=== PATIENT | female | born 1945 | race Two or more races ===

== ENCOUNTER 2024-05-31 20:00 | Inpatient (IN) | payer OTHER, MEDICAID ==
[~2024-05-31] VITALS: Ht 152.4 cm; Wt 69.5 kg
--- NOTE | 2024-05-31 20:13 | ED.PDOC ---
HPI Comments HPI: Poor Historian. History obtained from the son and EMS. 78-year-old female presents to emergency department by EMS for evaluation of chest pain nonradiating that happened while she was in the car riding with her son. She has been having a long day and a stressful day according to the son. Pain is nonradiating. Pain is associated with shortness of breath. Pain lasts for approximately 15minutes. She denies active chest pain at this time but she appears to be short of breath. VITALS: Temp: 98.2F RR: 18 02 sat : 100 % on room air HR: 62 BP: 127/64 PMH: HTN, hypothyroidism, hyperlipidemia PSH: unknown Social history: denies tobacco use, denies ETOH use, denies drug use Medications: atorvastatin, Synthroid Allergies: nkda REVIEW OF SYSTEMS: CONSTITUTIONAL: Denies acute: fever, diaphoresis, chills, HEAD: Denies acute: headache, photophobia Eyes: Denies acute: Double vision, vision loss, eye pain, eye discharge. EARS: Denies acute: tinnitus, hearing loss, ear discharge, ear pain, THROAT: Denies acute: sore throat, swelling, difficulty swallowing , pain with swallowing, change in voice. NECK: Denies acute: neck pain, neck swelling, stiff neck. HEART: Denies acute : palpitations, LUNGS: Denies acute: wheezing, cough, hemoptysis ABDOMEN: Denies acute: abdominal pain, Nausea, Vomiting, diarrhea, melena , hematemesis, hematochezia SKIN: Denies acute: rash, redness, lesions, itchiness. EXTREMITIES: Denies acute: calf pain, numbness, tingling, weakness, denies pain in extremity. Denies acute: Low back pain. Neuro: Denies acute: focal neurological deficit, motor or sensory focal neurological deficit, tremors, seizure like activity, confusion, dizziness, change in mental status, loss of bowel or bladder function, cauda equina like symptoms. : Denies acute: dysuria, hematuria, flank pain, increase in urinary frequency. PSYCH: Denies acute: hallucination, suicidal ideation, homicidal ideation. FEMALE: Denies acute: abnormal vaginal bleeding, foul odor, unusual discharge. PHYSICAL EXAM: General: no acute distress, awake and alert. Head: normocephalic, atraumatic. Neck: supple, trachea is midline, no swelling. Throat: Normal phonation. Eyes:, no erythema, no purulent discharge, no proptosis, no icterus. Heart: regular rate, regular rhythm, no significant murmur appreciated. Lungs: Minimal respiratory distress, No wheezing, no rhonchi, no crackles. No stridors Clear to auscultation bilaterally. Abdomen: non tender to palpation, non distended, soft, no guarding, no rebound, + bowel sounds. Neuro: Awake, Alert, oriented to name, self, situation, follows commands GCS=15. Speech is normal. Skin: no petechia, no purpura, no cyanosis, non-pale, not jaundice. Lower extremities: --no - Pitting edema no deformity, no focal swelling, no calf TTP. Makes eye contact. moves all four extremities. Face: no apparent facial droop. Time Seen by MD: 20:03 Reviewed Notes: Nurses Notes, Bullet Slugs Inspector Notes, Medications, Allergies Allergies: Coded Allergies: NO KNOWN ALLERGIES (Unverified , 05/31/24) Information Source: Patient, Relative Mode of Arrival: EMS Past Medical History PAST MEDICAL HISTORY: HTN, Thyroid Surgical History: Denies all surgeries Family History Family History: Unknown Social History Smoker: Non-Smoker Alcohol: Denies ETOH Use Drugs: Denies Drug Use Lives In: Home Was a procedure done? Was a procedure done?: No X-Ray, Labs, Meds, VS Vital Signs Date Time Temp Pulse Resp B/P (MAP) Pulse Ox O2 Delivery O2 Flow Rate FiO2 05/31/24 21:13 63 05/31/24 20:42 98.5 62 18 127/64 (85) 100 98.5 05/31/24 20:42 18 100 Room Air* 0 21 05/31/24 20:13 63 05/31/24 20:00 98.5 62 18 127/64 (85) 100 Lab Test 05/31/24 21:07 05/31/24 20:25 Range/Units Troponin I High Sensitivity 4 5 </=54 ng/L White Blood Count 7.1 4.4-10.8 10^3/uL Red Blood Count 4.26 L 4.5-5.90 10^6/uL Hemoglobin 12.4 L 13.5-17.5 g/dL Hematocrit 37.1 L 41.0-53.0 % Mean Corpuscular Volume 87.2 80.0-100.0 fL Mean Corpuscular Hemoglobin 29.1 28.0-32.0 pg Mean Corpuscular Hemoglobin Concent 33.3 32.0-36.0 g/dL Red Cell Distribution Width 15.8 H 11.8-14.3 % Platelet Count 233 140-450 10^3/uL Mean Platelet Volume 8.8 6.9-10.8 fL Neutrophils (%) (Auto) 71.6 37.0-80.0 % Lymphocytes (%) (Auto) 22.0 10.0-50.0 % Monocytes (%) (Auto) 4.8 0.0-12.0 % Eosinophils (%) (Auto) 0.9 0.0-7.0 % Basophils (%) (Auto) 0.7 0.0-2.0 % Neutrophils # (Auto) 5.1 1.6-8.6 10 ^3/uL Lymphocytes # (Auto) 1.6 0.4-5.4 10 ^3/uL Monocytes # (Auto) 0.3 0-1.3 10 ^3/uL Eosinophils # (Auto) 0.1 0-0.8 10 ^3/uL Basophils # (Auto) 0.1 0-0.2 10 ^3/uL Nucleated Red Blood Cells 0.1 % D-Dimer, Quantitative 0.88 H 0.0-0.49 mg/L FEU Sodium Level 140 136-145 mmol/L Potassium Level 3.4 L 3.5-5.1 mmol/L Chloride Level 106 98-107 mmol/L Carbon Dioxide Level 25 20-31 mmol/L Anion Gap 9 5-15 Blood Urea Nitrogen 9 9-23 mg/dL Creatinine 1.00 0.700-1.30 mg/dL Glomerular Filtration Rate Calc 76 >90 mL/min BUN/Creatinine Ratio 9.0 L 10.0-20.0 Serum Glucose 122 H 74-106 mg/dL Calcium Level 10.3 8.7-10.4 mg/dL Magnesium Level 2.0 1.6-2.6 mg/dL Total Bilirubin 0.4 0.2-1.0 mg/dL Aspartate Amino Transferase (AST) 15 13-40 U/L Alanine Aminotransferase (ALT) 9 7-40 U/L Alkaline Phosphatase 90 46-116 U/L B-Type Natriuretic Peptide 77.29 0-100 pg/mL Total Protein 7.4 5.7-8.2 g/dL Albumin 4.2 3.2-4.8 g/dL Current Medications Medications (Trade) Dose Ordered Sig/[place] Route Start Time Stop Time Status Last Admin Aspirin 325 mg ONCE ONCE PO 05/31/24 20:15 05/31/24 20:40 DC 05/31/24 20:41 [place] [address] Ph: [phone] DIAGNOSTIC IMAGING Diagnostic Imaging Report : [id number] Signed PATIENT: JENNIFER GUILLEN ACCT: [id number] UNIT: [id number] : 1945 LOC: ER ROOM / BED: / AGE / SEX: 78 / M ADM STATUS: REG ER SERVICE 09 ORDERING PHYSICIAN: CLYDE HANNA DO PROCEDURE(s): CXRP - CHEST PORTABLE REASON: cp/sob ORDER NUMBER(s): [id number], ACCESSION NUMBER(s): [id number] CHEST RADIOGRAPH Indication: cp/sob Technique: Single frontal view of the chest was obtained Comparison: None FINDINGS: Lines and Tubes: None Lungs: Clear Pleura: No effusion. No pneumothorax. Cardiomediastinal contours: Unremarkable Bones: Unremarkable IMPRESSION: 1. Clear lungs. ATED BY: ALINE CESAR DO DICTATED DATE/TIME: 05/31/242044 SIGNED BY: ALINE CESAR DO SIGNED DATE/TIME: 05/31/242044 CC: Patient Education/Counseling: Diagnosis, Treatment Family Education/Counseling: No Family Present Additional Information Patient presented with the above HPI.--chest pain ---workup was initiated. patient was found with the above mentioned diagnosis. the following medications were ordered: aspirin 325x2 the following tests were ordered: EKG x 3, troponin x3, chest x-ray, UA, magn esium, D-dimer, CBC, CMP,BNP Patient ED course and VS have been stabilized. Patient has been reassessed in the ED and remained in a stable condition. Patient has been observed in the ED adequate length of time to insure improvement/stability. Escalation of care considered: Consideration of escalation to observation or admission. patient was admitted to the medicine team for further evaluation and treatment of their presentation. All the reports of any imaging studies that were ordered by myself were reviewed by myself. Departure 1 Departure Time of Disposition: 21:23 Impression: Primary Impression: Chest pain Additional Impression: Dyspnea Disposition: ADMITTED INPATIENT Admit to: Tele Condition: Guarded Discharged With: Self Critical Care Note Critical Care Time?: No Heart Score Heart Score: Heart Score Response (Comments) Value History Moderate Suspicious 1 EKG Normal 0 Age >65 2 Risk Factors 1 or 2 risk factors 1 Troponin Normal limit 0 Total 4 I personally scribed for CLYDE HANNA DO ([email or web address]) on 05/31/24 at 20:13. Electronically submitted by Deonna Boyer ([employer]). I personally scribed for CLYDE HANNA DO ([email or web address]) on 05/31/24 at 20:50. Electronically submitted by Deonna Boyer ([employer]). I personally scribed for CLYDE HANNA DO ([email or web address]) on 05/31/24 at 21:06. Electronically submitted by Deonna Boyer ([employer]). I personally scribed for CLYDE HANNA DO ([email or web address]) on 05/31/24 at 21:20. Electronically submitted by Deonna Boyer ([employer]). CLYDE HANNA DO May 31, 2024 20:13
[2024-05-31] MEDS: ASPirin 325 MG TAB ONE (20:40)
[2024-05-31] MEDS: ASPirin 325 MG TAB PO ONE (20:41)
[2024-05-31 20:42] VITALS: RESP 18; O2SAT 100
--- NOTE | 2024-05-31 20:47 | DVH ---
CHEST RADIOGRAPH Indication: cp/sob Technique: Single frontal view of the chest was obtained Comparison: None FINDINGS: Lines and Tubes: None Lungs: Clear Pleura: No effusion. No pneumothorax. Cardiomediastinal contours: Unremarkable Bones: Unremarkable IMPRESSION: 1. Clear lungs.
[2024-05-31 20:58] LABS: Basophils # (auto) 0.1 10 ^3/uL (0-0.2); Basophils % (auto) 0.7 % (0.0-2.0); Eosinophils # (auto) 0.1 10 ^3/uL (0-0.8); Eosinophils % (auto) 0.9 % (0.0-7.0); Hematocrit 37.1 % (41.0-53.0); Hemoglobin 12.4 g/dL (13.5-17.5); Lymphocytes # (auto) 1.6 10 ^3/uL (0.4-5.4); Mean Corpuscular Hemoglobin 29.1 pg (28.0-32.0); Mean Corpuscular Hgb Conc. 33.3 g/dL (32.0-36.0); Mean Corpuscular Volume 87.2 fL (80.0-100.0); Monocytes # (auto) 0.3 10 ^3/uL (0-1.3); Monocytes % (auto) 4.8 % (0.0-12.0); Neutrophils # (auto) 5.1 10 ^3/uL (1.6-8.6); Neutrophils % (auto) 71.6 % (37.0-80.0); Nucleated Red Blood Cells % 0.1 %; Platelet Count (auto) 233 10^3/uL (140-450); Red Blood Cells 4.26 10^6/uL (4.5-5.90); Red Cell Distribution Width 15.8 % (11.8-14.3); White Blood Cell 7.1 10^3/uL (4.4-10.8)
[2024-05-31 21:07] LABS: Alanine Aminotransferase 9 U/L (7-40); Albumin 4.2 g/dL (3.2-4.8); Alkaline Phosphatase 90 U/L (46-116); Anion Gap 9 (5-15); Aspartate Aminotransferase 15 U/L (13-40); Bilirubin, Total 0.4 mg/dL (0.2-1.0); Blood Urea Nitrogen 9 mg/dL (9-23); Calcium 10.3 mg/dL (8.7-10.4); Carbon Dioxide 25 mmol/L (20-31); Chloride 106 mmol/L (98-107); Glucose 122 mg/dL (74-106); Potassium 3.4 mmol/L (3.5-5.1); Sodium 140 mmol/L (136-145); Total Protein 7.4 g/dL (5.7-8.2)
[2024-06-01] VITALS (7 sets, daily range): BP systolic 128–162; BP diastolic 56–69; PULSE 52–74; RESP 16–18; TEMP 97.9–98.7; O2SAT 95–97
[2024-06-01] MEDS ORDERED: NITROGLYCERIN 0.4 MG SL TAB SL PRN (03:00)
[2024-06-01] MEDS ORDERED: MORPHINE SULFATE INJ 2 MG/ml SYRG IV PRN (03:00)
[2024-06-01] MEDS: POTASSIUM EFFERVESENT TAB 25 MEQ GT ONE (04:05)
--- NOTE | 2024-06-01 06:31 | ECG ---
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
--- NOTE | 2024-06-01 06:48 | ECG ---
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
[2024-06-01] MEDS ORDERED: ACET-2058 PO (06:54)
[2024-06-01] MEDS ORDERED: BACL20TA PO (06:54)
[2024-06-01] MEDS ORDERED: LEVO112T4 PO ×2 (06:54)
[2024-06-01] MEDS ORDERED: ASPI81TA28 PO (06:54)
[2024-06-01] MEDS ORDERED: DILT-29 PO (06:54)
[2024-06-01] MEDS ORDERED: OMEP-434 PO (06:54)
[2024-06-01] MEDS ORDERED: LOSA-533 PO (06:54)
[2024-06-01] MEDS ORDERED: IBUP-1454 PO (06:54)
[2024-06-01] MEDS ORDERED: OSEL75CA5 PO (06:57)
[2024-06-01] MEDS ORDERED: ARNI1LIQ XX (06:57)
[2024-06-01] MEDS ORDERED: BACLOFEN 10 MG TAB PO PRN (09:45)
--- NOTE | 2024-06-01 09:47 | DVHHPRES ---
History of Present Illness Resident Creating Document: STALIN MIR RESIDENT History of Present Illness Mr. Luis 78-year-old female with a history of hypertension, hypothyroidism, and hyperlipidemia presented to the ER with nonradiating chest pain and shortness of breath, which occurred while riding in a car with her son. The pain lasted about 15 minutes and was associated with a stressful day. She denied active chest pain upon arrival but appeared short of breath. Medications and tests, including aspirin, EKGs, troponin levels, chest X-ray, and others, were ordered. Her condition stabilized in the ER, and she was admitted for further evaluation and treatment In the telemetry unit. Patient is poor historian , collateral history taken from the EMS and son. Patient is poor historian and the medication reconciliation is partial, needs further confirmation from the family. Cardiovascular: CAD, HTN, hyperipidemia Endocrine: Hypothyroidism Past Surgical History: None Family History: None (Noncontributory) Smoke: No ALCOHOL: none Drugs: None Lives: with Family Review of Systems Constitutional: Yes: Malaise; No: Fever, Chills, Sweats, Weakness, Other Eyes: No: Pain, Vision change, Conjunctivae inflammation, Eyelid inflammation, Other, Redness ENT: No: Ear pain, Ear discharge, Nose pain, Nose discharge, Nose congestion, Mouth pain, Mouth swelling, Throat pain, Throat swelling, Other Respiratory: No: Cough, Dry, Shortness of breath, SOB with excertion, Wheezing, Hemoptysis, Pleuritic Pain, Sputum, Wheezing, Other Cardiovascular: Chest Pain; No: Palpitations, Orthopnea, Paroxysmal Noc. Dyspnea, Edema, Lt Headedness, Other Gastrointestinal: No: Nausea, Vomiting, Abdominal Pain, Diarrhea, Constipation, Melena, Hematochezia, Other Genitourinary: No Dysuria, No Frequency, No Incontinence, No Hematuria, No Retention, No Other Musculoskeletal: No: other, neck pain, shoulder pain, arm pain, back pain, hand pain, leg pain, foot pain Skin: No: Rash, Lesions, Jaundice, Bruising, Other Neurological: No: Weakness, Numbness, Incoordination, Change in speech, Confusion, Seizures, Other Allergies: Coded Allergies: NO KNOWN ALLERGIES (Unverified , 05/31/24) Medications Current Medications Medications Dose Ordered Sig/[place] Route Start Time Stop Time Status Last Admin Dose Admin Nitroglycerin 0.4 mg Q5MINP PRN SL 06/01/24 03:00 Morphine Sulfate 2 mg Q30M PRN IV 06/01/24 03:00 Exam Vital Signs Vital Signs Date Time Temp Pulse Resp B/P (MAP) Pulse Ox O2 Delivery O2 Flow Rate FiO2 06/01/24 08:31 98.7 55 16 137/60 (85) 97 98.7 06/01/24 04:08 Room Air 05/31/24 20:42 0 21 General Appearance: Alert, Oriented X3, Cooperative, mild distress HEENT: Atraumatic, PERRLA, EOMI, Mucous membr. moist/pink Respiratory: Clear to auscultation, Other (Basal rales) Cardiovascular: Regular rate, Normal S1, Normal S2, No murmurs Abdominal: Normal bowel sounds, Soft, No tenderness, No hepatospenomegaly Extremities: No clubbing, No cyanosis, No edema, Normal pulses, No tenderness/swelling Skin: No rashes, No breakdown, No significant lesion Neuro: Normal gait, Normal speech, Strength at 5/5 X4 ext, Normal tone, Sensation intact, Cranial nerves 3-12 NL, Reflexes 2+ Psych/Mental Status: Mental status NL, Mood NL Labs/Xrays Labs Test 05/31/24 22:55 05/31/24 20:25 Range/Units Troponin I High Sensitivity 4 </=54 ng/L White Blood Count 7.1 4.4-10.8 10^3/uL Red Blood Count 4.26 L 4.5-5.90 10^6/uL Hemoglobin 12.4 L 13.5-17.5 g/dL Hematocrit 37.1 L 41.0-53.0 % Mean Corpuscular Volume 87.2 80.0-100.0 fL Mean Corpuscular Hemoglobin 29.1 28.0-32.0 pg Mean Corpuscular Hemoglobin Concent 33.3 32.0-36.0 g/dL Red Cell Distribution Width 15.8 H 11.8-14.3 % Platelet Count 233 140-450 10^3/uL Mean Platelet Volume 8.8 6.9-10.8 fL Neutrophils (%) (Auto) 71.6 37.0-80.0 % Lymphocytes (%) (Auto) 22.0 10.0-50.0 % Monocytes (%) (Auto) 4.8 0.0-12.0 % Eosinophils (%) (Auto) 0.9 0.0-7.0 % Basophils (%) (Auto) 0.7 0.0-2.0 % Neutrophils # (Auto) 5.1 1.6-8.6 10 ^3/uL Lymphocytes # (Auto) 1.6 0.4-5.4 10 ^3/uL Monocytes # (Auto) 0.3 0-1.3 10 ^3/uL Eosinophils # (Auto) 0.1 0-0.8 10 ^3/uL Basophils # (Auto) 0.1 0-0.2 10 ^3/uL Nucleated Red Blood Cells 0.1 % D-Dimer, Quantitative 0.88 H 0.0-0.49 mg/L FEU Sodium Level 140 136-145 mmol/L Potassium Level 3.4 L 3.5-5.1 mmol/L Chloride Level 106 98-107 mmol/L Carbon Dioxide Level 25 20-31 mmol/L Anion Gap 9 5-15 Blood Urea Nitrogen 9 9-23 mg/dL Creatinine 1.00 0.700-1.30 mg/dL Glomerular Filtration Rate Calc 76 >90 mL/min BUN/Creatinine Ratio 9.0 L 10.0-20.0 Serum Glucose 122 H 74-106 mg/dL Calcium Level 10.3 8.7-10.4 mg/dL Magnesium Level 2.0 1.6-2.6 mg/dL Total Bilirubin 0.4 0.2-1.0 mg/dL Aspartate Amino Transferase (AST) 15 13-40 U/L Alanine Aminotransferase (ALT) 9 7-40 U/L Alkaline Phosphatase 90 46-116 U/L B-Type Natriuretic Peptide 77.29 0-100 pg/mL Total Protein 7.4 5.7-8.2 g/dL Albumin 4.2 3.2-4.8 g/dL [address] [address] Ph: [phone] DIAGNOSTIC IMAGING Diagnostic Imaging Report : [id number] Signed PATIENT: JENNIFER LUIS ACCT: [id number] UNIT: [id number] : 1945 LOC: ER ROOM / BED: / AGE / SEX: 78 / M ADM STATUS: REG ER SERVICE 09 ORDERING PHYSICIAN: CLYDE HANNA DO PROCEDURE(s): CXRP - CHEST PORTABLE REASON: cp/sob ORDER NUMBER(s): [id number], ACCESSION NUMBER(s): [id number] CHEST RADIOGRAPH Indication: cp/sob Technique: Single frontal view of the chest was obtained Comparison: None FINDINGS: Lines and Tubes: None Lungs: Clear Pleura: No effusion. No pneumothorax. Cardiomediastinal contours: Unremarkable Bones: Unremarkable IMPRESSION: 1. Clear lungs. ATED BY: ALINE CESAR DO DICTATED DATE/TIME: 05/31/242044 SIGNED BY: ALINE CESAR DO SIGNED DATE/TIME: 05/31/242044 CC: EKG Name: JENNIFER LUIS Acct: [id number] [place] [address] ELECTROCARDIOGRAM REPORT PATIENT: JENNIFER LUIS ACCT: [id number] : 1945 LOC: [facility] ROOM / BED: [address] [place] [address] AGE / SEX: 78 / M ADM STATUS: ADM IN SERVICE 09 UNIT: [id number] ORDERING PHYSICIAN: CLYDE HANNA DO PROCEDURE(s): EKG - ELECTROCARDIGRAM ORDER NUMBER(s): [id number], ACCESSION NUMBER(s): [id number] [facility] Test Date: 2024-05-31 Test Time: 21:13:26 Pat Name: JENNIFER LUIS Department: ED Room: [address] [place] [address] Gender: M 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 DICTATED BY: DICTATED DATE/TIME:05/31/242112 ELECTRONICALLY SIGNED BY: ELECTRONICALLY CO-SIGNED BY: Assessment/Plan Assessment/Plan Assessment: Mr. Luis, an 78-year-old female with a history of hypertension, hypothyroidism, and hyperlipidemia, presented to the ER with nonradiating chest pain and shortness of breath after a stressful day. The pain lasted about 15 minutes and occurred while riding in a car with her son. She denied active chest pain upon arrival but appeared short of breath. Medications and tests were ordered, and her condition stabilized in the ER. She was admitted to the telemetry unit for further evaluation and treatment. Collateral history was obtained from EMS and her son due to her being a poor historian. Plan: #1 Acute chest pain, to rule out ACS: So far workup negative with no acute ST-T changes, WNL BNP, and elevated troponin, further workup pending, echo pending, CXR unremarkable. Differentials include pruritic/bradycardic chest pain, ESR CRP pending, D-dimer unremarkable, continue the patient on Lovenox, COVID, RSV, influenza to check with close observation in telemetry unit. #2 Essential hypertension: At home patient takes diltiazem 120 mg XR, and losartan 25 mg daily.Moderately controlled with target blood pressure 140/90 or below as per AHA/ACC guidelines for non diabetic adults. At this point blood pressure well controlled no need of adding antihypertensives. Continue cardiac diet with 2 g of salt restriction. #3 Hypothyroidism: At home take levothyroxine 100 mcg daily. Check TSH, continue home levothyroxine. #4 Hyperlipidemia: At home takes atorvastatin 40 mg daily. Check HbA1c, lipid panel. Continue home medications. #5 Mild hypokalemia: 3.4, replenished, follow up BMP. #6 Normocytic hypochromic anemia: No known baseline hemoglobin of 3.4, check for FOBT, iron panel. Unknown last colonoscopy. #7 Generalized deconditioning: Likely age-related: Continue nutritious diet, PT evaluation for safe discharge to home. Consult sw if needed any social support / delivery to home. #8 Use of alternative medicine: Patient takes arnica, for pain management, in known homeopathic medication. Holding in-hospital. #9 Recent history of positive for flu: status post oseltamivir/ Tamiflu. possible pneumonia also got doxycycline previously. #10 Osteoarthritis: Patient takes as needed Tylenol, ibuprofen, baclofen 10 mg t.i.d. p.r.n.. #11 Known GERD: Takes omeprazole 20 mg daily, continue PPI in-hospital. #12 Known CAD: Extensive disease with continue aspirin atorvastatin. As needed sublingual nitroglycerin. This could be anginal chest pain given patient's age not a candidate for catheterization. Consider stress test inpatient/outpatient. PUD prophylaxis: Protonix 40mg daily. DVT prophylaxis: Levonox 40mg , brisk movement. Barriers to discharge: Medical diagnosis and management in progress. Patient lives with Son and family. PT and SW consult as needed. otherwise you CKD. Two. PCP: Trudy Washington. Specialist Relevant To Admission: Cardiology. Case discussed with Dr. Cornejo. Code Status: Full Code. Discussion of care needed total 29 minutes bedside. Plan discussed with: Patient, Other (Primary team. RN.) My Orders Orders - STALIN MIR RESIDENT Procedure Category Date Status Time Admit ADMIT 06/01/24 Transmitted 02:56 Nitroglycerin [facility] 06/01/24 In Process Sublingual (Ntrostat 03:00 Morphine Sulfate PHA 06/01/24 In Process Injection 03:00 Oxygen By Nasal RT 06/01/24 Transmitted Cannula 02:56 Stat Ekg For Chest [facility] 06/01/24 In Process Pain 02:56 Notify Of Changes [facility] 06/01/24 In Process From Base 02:56 Roofing Layer For [facility] 06/01/24 In Process 24 Hours 02:56 Emergency Dysrhythmia [facility] 06/01/24 In Process Protocol 02:56 Rhythm Strips Once [facility] 06/01/24 In Process Every Shift 02:56 Complete Blood Count LAB 06/01/24 Logged 09:12 Comprehensive LAB 06/01/24 Logged Metabolic Panel 09:12 Erythrocyte LAB 06/01/24 Logged Sedimentation Rate 09:12 C-Reactive Protein LAB 06/01/24 Logged 09:12 Thyroid Stimulating LAB 06/01/24 Logged Hormone 09:12 Prothrombin Time W/ LAB 06/01/24 Logged INR 09:12 Covid19 Antigen Wendy LAB 06/01/24 Logged Rapid Influenza A&B LAB 06/01/24 Logged 09:12 Respiratory Culture [place] 06/01/24 Logged W/ Gs 09:12 Respiratory Syncytial LAB 06/01/24 Logged Virus Ag 09:12 Pt Request For Service PT 12/14/24 Logged 09:20 Cardiac DIET 06/01/24 Transmitted Diet-2gna,Lofat,Lochol Breakfast * Cardiology Consult CONS 06/01/24 Verified 09:36 Date of Service: Jun 01, 2024 Billing Provider: CHARLEY CORNEJO MD Common Visit Codes: [id number] INP/OBS CARE (HIGH) Secondary Visit Codes: [id number] CARE PLAN 30 MINUTES STALIN MIR RESIDENT Jun 01, 2024 09:47 CHARLEY CORNEJO MD Jun 02, 2024 18:52
[2024-06-01 10:38] LABS: Basophils # (auto) 0 10 ^3/uL (0-0.2); Basophils % (auto) 0.4 % (0.0-2.0); Eosinophils # (auto) 0.1 10 ^3/uL (0-0.8); Eosinophils % (auto) 2.3 % (0.0-7.0); Hematocrit 37.4 % (41.0-53.0); Hemoglobin 12.2 g/dL (13.5-17.5); Lymphocytes # (auto) 2.7 10 ^3/uL (0.4-5.4); Lymphocytes % (auto) 46.1 % (10.0-50.0); Mean Corpuscular Hemoglobin 28.6 pg (28.0-32.0); Mean Corpuscular Hgb Conc. 32.6 g/dL (32.0-36.0); Mean Corpuscular Volume 87.7 fL (80.0-100.0); Monocytes # (auto) 0.4 10 ^3/uL (0-1.3); Monocytes % (auto) 6.2 % (0.0-12.0); Neutrophils # (auto) 2.6 10 ^3/uL (1.6-8.6); Platelet Count (auto) 235 10^3/uL (140-450); Red Blood Cells 4.27 10^6/uL (4.5-5.90); Red Cell Distribution Width 15.8 % (11.8-14.3); White Blood Cell 5.7 10^3/uL (4.4-10.8)
[2024-06-01 10:45] LABS: COVID19 ANTIGEN SOFIA FIA NEGATIVE (NEGATIVE); Rapid Influenza A Negative (Negative); Rapid Influenza B Negative (Negative)
[2024-06-01] MEDS: ASPirin 81 mg TAB PO SCH (10:46)
[2024-06-01] MEDS: PANTOPRAZOLE 40 MG TAB PO ONE (10:46)
[2024-06-01 10:54] LABS: % Iron Saturation 23.8 % (20-55)
[2024-06-01 10:56] LABS: Alanine Aminotransferase 10 U/L (7-40); Albumin 4.1 g/dL (3.2-4.8); Alkaline Phosphatase 87 U/L (46-116); Anion Gap 7 (5-15); Aspartate Aminotransferase 17 U/L (13-40); BUN/Creatinine Ratio 8.3 (10.0-20.0); Bilirubin, Total 0.6 mg/dL (0.2-1.0); CRP High Sensitivity 0.34 mg/dL (<1.0); Calcium 10.3 mg/dL (8.7-10.4); Carbon Dioxide 27 mmol/L (20-31); Chloride 107 mmol/L (98-107); Glucose 94 mg/dL (74-106); Potassium 4.4 mmol/L (3.5-5.1); Sodium 141 mmol/L (136-145); Total Protein 7.2 g/dL (5.7-8.2)
[2024-06-01 11:00] LABS: Blood Urea Nitrogen 7 mg/dL (9-23)
[2024-06-01 11:01] LABS: INR 1.03 (0.9-1.15); Prothrombin Time 10.9 sec (9.3-11.8)
[2024-06-01 11:27] LABS: Erythrocyte Sedimentation Rate 19 mm/hr (0-20)
[2024-06-01] MEDS: IOHEXOL 350 MG/ML 100ML IJ ONE (12:48)
--- NOTE | 2024-06-01 14:04 | DVHPNRES ---
Progress Note Date Seen: Jun 01, 2024 Resident Creating Document: TOVA LANG RESIDENT Medical Necessity Reason Pt with a Central, PICC or Fol: No Subjective Review of Systems Safia Luis is a 78-year-old female with a PMH of HTN, hypothyroidism, hyperlipidemia presented to the ED with the chief complaints of shortness of breath and chest pressure while traveling in a car with her son on the day of admission. Patient reported sudden onset of difficulty breathing and chest perforation which is nonradiating which subsided after sometime. Patient reported no previous symptoms like this, no recent infection or travel or sick contacts. On my assessment patient denies fever, nausea, vomiting, diarrhea, diaphoresis, and other acute associated symptoms PMH: CAD, HTN, HLD, hypothyroidism PSH: Denies Family history: Reviewed, noncontributory Social history: Lives with the family. Denies smoking, alcohol and other drug abuse Allergies: No known allergies Patient seen and examined at the bedside. Patient reported improvement in her symptoms since admission, reported no new complaints. Reviewed EKG and troponins x3 were negative. Due to elevated D-dimer, ordered CT angiogram to rule out PE , pending. Consulted cardiology for further evaluation. Objective vital signs Vital Sign Date Time Temp Pulse Resp B/P (MAP) Pulse Ox O2 Delivery O2 Flow Rate FiO2 06/01/24 12:45 52 16 134/64 (87) 95 06/01/24 08:31 98.7 98.7 06/01/24 04:08 Room Air 05/31/24 20:42 0 21 medications Current Medications Medications Dose Ordered Sig/[place] Route Start Time Stop Time Status Last Admin Dose Admin Nitroglycerin 0.4 mg Q5MINP PRN SL 06/01/24 03:00 Morphine Sulfate 2 mg Q30M PRN IV 06/01/24 03:00 Levothyroxine Sodium 100 mcg QAM@0600 PO 06/02/24 06:00 Atorvastatin Calcium 40 mg HS PO 06/01/24 22:00 Baclofen 10 mg Q8HP PRN PO 06/01/24 09:45 Aspirin 81 mg DAILY PO 06/01/24 10:00 06/01/24 10:46 81 MG Pantoprazole Sodium 40 mg DAILY@0600 PO 06/02/24 06:00 Examination Pt is lying on bed General Appearance: Alert, Oriented X3, Cooperative, Not in acute distress HEENT: Atraumatic, Mucous membranes moist/pink Respiratory: Clear to auscultation, Normal air movement, No added sounds Cardiovascular: Regular rate, Normal S1, Normal S2, No murmurs Abdominal: Active bowel sounds, Soft, no distention, no tenderness Extremities: No edema, Normal pulses, No tenderness/swelling Skin: No Significant rash, except past surgical scars Neuro: Normal speech, sensorimotor deficits none Psych/Mental Status: Mental status NL, Mood NL Nurse was there as sharperone during examination laboratory and microbiology Laboratory Tests 06/01/24 10:20 Test 06/01/24 10:20 Range/Units Serum Glucose 94 74-106 mg/dL Labs and/or images reviewed: Labs reviewed by me, Image(s) reviewed by me Problem List/Assessment/Plan Problem List/Assessment/Plan # acute chest pain rule out ACS # rule out PE - reviewed EKG, troponins x3 were negative - currently on chest pain protocol - elevated D-dimer, ordered CT angiogram to rule out PE , pending. - Consulted cardiology for further evaluation - supportive treatment # hypothyroidism - continue levothyroxine # uncontrolled hypertension - monitor - resumed home meds # Hypokalemia - Repleting - Monitor lab # Normocytic hypochromic anemia - monitor lab # Osteoarthritis - continue home meds # hyperlipidemia - continue home meds SCDs for now Protonix Cardiac diet Reconciled home meds Goals care discussed with the patient for more than 27 minutes: Full code status Case management discussed with Dr. Pizano, patient and nurse Plan discussed with: Patient My Orders My Orders Orders - TOVA LANG Procedure Category Date Status Time Ct Angio Chest CT 06/01/24 Taken Contrast 11:45 Echo 2d Mode Cardiac US 06/01/24 Logged DOP 11:45 * Cardiology Consult CONS 06/01/24 Transmitted 13:53 Complete Blood Count LAB 06/02/24 Verified 04:00 Basic Metabolic Panel LAB 06/02/24 Verified 04:00 Losartan Tablet PHA 06/02/24 Logged (Cozaar Tablet) 10:00 Date of Service: Jun 01, 2024 Billing Provider: MELLY PIZANO MD Common Visit Codes: [id number] INP/OBS CARE(HIGH) Secondary Visit Codes: [id number] CARE PLAN 30 MINUTES TOVA LANG Jun 01, 2024 14:04 MELLY PIZANO MD Jun 03, 2024 20:15
--- NOTE | 2024-06-01 14:35 | DVH ---
CTA Chest with intravenous contrast INDICATION: R/O PE COMPARISON: Chest x-ray 05/31/2024 TECHNIQUE: Multidetector spiral CTA of the chest was performed of the chest with intravenous contrast . PULMONARY ANGIOGRAPHY PROTOCOL was utilized using a bolus-tracking technique centered on the main p ulmonary artery. Axial, coronal and sagittal multiplanar and MIP reformats were performed. Radiation Dose : 1. Chest: CTDI volume is 13.02 mGy. Dose-length product is 325.57 mGy*cm The dose indicators for CT are the volume Computed Tomography (CT) Dose Index (CTDIvol) and the Dose Length Product (DLP), and are measured in units of mGy and mGy-cm, respectively. These indicators are not patient dose, but values generated from the CT scanner acquisition factors. The report includes radiation exposure data for exposures received during this examination. Findings: Pulmonary artery: No central or large segmental pulmonary emboli. There is suboptimal evaluation of the segmental/subse gmental pulmonary arterial branches at the lung bases secondary to respiratory motion. Lower neck: Normal thyroid. Lungs: There is dependent atelectasis. There are areas of mild ground-glass opacity which is likely related to poor inspiration. No focal consolidation. Heart/Vascular Structures: Normal heart size. No pericardial effusion. Mild atherosclerotic calcifica tion in the coronary arteries and thoracic aorta. Lymph Nodes: No adenopathy Pleura: No pleural effusion or significant pneumothorax. Musculoskeletal: No acute osseous abnormality. Old fracture of the right 4th lateral rib. Soft tissues: Normal. Upper abdomen: Punctate cholelithiasis. There is a 1.7 cm left adrenal nodule that attenuates at -7 H [place] units. There is a moderate size hiatal hernia. IMPRESSION: 1. No evidence of pulmonary embolism. 2. Mild ground-glass opacities are likely related to poor inspiration. No focal pneumonia. 3. Cholelithiasis. 4. Left adrenal adenoma. 5. Moderate hiatal hernia.
[2024-06-01] MEDS ORDERED: INFLUENZA TRIVALENT 2024-2025 0.5 ML INJ IM ONE (19:00)
[2024-06-01] MEDS ORDERED: cloNIDine HCL 0.1 MG TAB PO PRN (19:15)
[2024-06-01] MEDS ORDERED: ATOR40TA52 PO (19:30)
[2024-06-01] MEDS: ATORVASTATIN 20 MG TAB PO SCH (21:30)
[2024-06-02] VITALS (8 sets, daily range): BP systolic 107–135; BP diastolic 55–66; PULSE 67–80; RESP 16–20; TEMP 97.5–98.4; O2SAT 87–98
[2024-06-02] MEDS: PANTOPRAZOLE 40 MG TAB PO SCH (05:23)
[2024-06-02] MEDS: LEVOTHYROXINE SODIUM 100 MCG TAB PO SCH (05:24)
[2024-06-02 06:02] LABS: Basophils # (auto) 0 10 ^3/uL (0-0.2); Basophils % (auto) 0.7 % (0.0-2.0); Eosinophils # (auto) 0.2 10 ^3/uL (0-0.8); Hematocrit 36.8 % (36.0-46.0); Hemoglobin 12.3 g/dL (12.2-16.2); Lymphocytes # (auto) 2.1 10 ^3/uL (0.4-5.4); Lymphocytes % (auto) 40.4 % (10.0-50.0); Mean Corpuscular Hemoglobin 29.2 pg (28.0-32.0); Mean Corpuscular Hgb Conc. 33.5 g/dL (32.0-36.0); Mean Corpuscular Volume 87.2 fL (80.0-100.0); Monocytes # (auto) 0.4 10 ^3/uL (0-1.3); Monocytes % (auto) 7.8 % (0.0-12.0); Neutrophils # (auto) 2.5 10 ^3/uL (1.6-8.6); Neutrophils % (auto) 48.1 % (37.0-80.0); Nucleated Red Blood Cells % 0.1 %; Platelet Count (auto) 224 10^3/uL (140-450); Red Blood Cells 4.22 10^6/uL (4.0-5.20); Red Cell Distribution Width 15.6 % (11.8-14.3); White Blood Cell 5.1 10^3/uL (4.4-10.8)
[2024-06-02 06:03] LABS: Anion Gap 8 (5-15); Carbon Dioxide 26 mmol/L (20-31); Chloride 107 mmol/L (98-107); Potassium 4.4 mmol/L (3.5-5.1); Sodium 141 mmol/L (136-145)
[2024-06-02 06:06] LABS: Glucose 104 mg/dL (74-106)
[2024-06-02 06:09] LABS: BUN/Creatinine Ratio 13.8 (10.0-20.0); Blood Urea Nitrogen 13 mg/dL (9-23)
[2024-06-02] MEDS: LOSARTAN POTASSIUM 25 MG TAB PO SCH (10:28)
--- NOTE | 2024-06-02 11:00 | DVHINCON2 ---
Date of service: Jun 02, 2024 History of Present Illness Mr. Luis 78-year-old female with a history of hypertension, hypothyroidism, and hyperlipidemia presented to the ER with nonradiating chest pain and shortness of breath, which occurred while riding in a car with her son. The pain lasted about 15 minutes and was associated with a stressful day. She denied active chest pain upon arrival but appeared short of breath. Medications and tests, including aspirin, EKGs, troponin levels, chest X-ray, and others, were ordered. Her condition stabilized in the ER, and she was admitted for further evaluation and treatment In the telemetry unit. Patient is poor historian , collateral history taken from the EMS and son. Patient is poor historian and the medication reconciliation is partial, needs further confirmation from the family. Cardiovascular: CAD, HTN, hyperipidemia Endocrine: Hypothyroidism Past Surgical History: None Family History: None (Noncontributory) Smoke: No ALCOHOL: none Drugs: None Lives: with Family Past Medical History reviewed Family History: Patient reports no known family medical history. Allergies: Coded Allergies: NO KNOWN ALLERGIES (Unverified , 05/31/24) Home Meds Reported Medications Atorvastatin Calcium (ATORVASTATIN CALCIUM) 40 Mg Tab, 1 TAB PO DAILY 06/01/24 Diltiazem Hcl (DILTIAZEM HCL ER) 240 Mg Cap, 500 MG PO, CAP 06/01/24 Losartan Potassium (Losartan Potassium) 25 Mg Tab, 1 TAB PO DAILY, #90 TAB 1 Refill 06/01/24 Levothyroxine Sodium (Levothyroxine Sodium) 112 Mcg Tab, 100 MCG PO, TAB 06/01/24 Aspirin (Aspirin Ec) 81 Mg Tab, 81 MG PO DAILY, TAB 06/01/24 Omeprazole Magnesium (Omeprazole) 20 Mg Tab, 20 MG PO, TAB 06/01/24 Baclofen (Baclofen) 20 Mg Tab, 10 MG PO TID, TAB 06/01/24 Current Medications Current Medications Medications (Trade) Dose Ordered Sig/[place] Route PRN Reason Start Time Stop Time Status Last Admin Levothyroxine Sodium (Synthroid Tablet) 100 mcg QAM@0600 PO 06/02/24 06:00 06/02/24 05:24 Atorvastatin Calcium (Lipitor) 40 mg HS PO 06/01/24 22:00 06/01/24 21:30 Pantoprazole Sodium (Protonix Tablet) 40 mg DAILY@0700 PO 06/02/24 06:00 06/02/24 05:23 Losartan Potassium (Cozaar Tablet) 25 mg DAILY PO 06/02/24 10:00 06/02/24 10:28 Clonidine HCl (Catapres Tablet) 0.1 mg Q4HP PRN PO SBP>160 06/01/24 19:15 Review of Systems 10 pt ros otherwise negative Vital Signs Vital Signs Date Time Temp Pulse Resp B/P (MAP) Pulse Ox O2 Delivery O2 Flow Rate FiO2 06/02/24 10:28 129/65 06/02/24 09:00 97.7 78 17 97 97.7 06/02/24 08:00 Room Air* 0 21 Physical Exam nad s1 s2 rrr ctab softn t/nd no edema Labs/Diagnostic Data Labs Test 06/02/24 05:13 06/01/24 10:20 06/01/24 09:52 05/31/24 22:55 Range/Units White Blood Count 5.1 4.4-10.8 10^3/uL Red Blood Count 4.22 4.0-5.20 10^6/uL Hemoglobin 12.3 12.2-16.2 g/dL Hematocrit 36.8 36.0-46.0 % Mean Corpuscular Volume 87.2 80.0-100.0 fL Mean Corpuscular Hemoglobin 29.2 28.0-32.0 pg Mean Corpuscular Hemoglobin Concent 33.5 32.0-36.0 g/dL Red Cell Distribution Width 15.6 H 11.8-14.3 % Platelet Count 224 140-450 10^3/uL Mean Platelet Volume 9.0 6.9-10.8 fL Neutrophils (%) (Auto) 48.1 37.0-80.0 % Lymphocytes (%) (Auto) 40.4 10.0-50.0 % Monocytes (%) (Auto) 7.8 0.0-12.0 % Eosinophils (%) (Auto) 3.0 0.0-7.0 % Basophils (%) (Auto) 0.7 0.0-2.0 % Neutrophils # (Auto) 2.5 1.6-8.6 10 ^3/uL Lymphocytes # (Auto) 2.1 0.4-5.4 10 ^3/uL Monocytes # (Auto) 0.4 0-1.3 10 ^3/uL Eosinophils # (Auto) 0.2 0-0.8 10 ^3/uL Basophils # (Auto) 0 0-0.2 10 ^3/uL Nucleated Red Blood Cells 0.1 % Sodium Level 141 136-145 mmol/L Potassium Level 4.4 3.5-5.1 mmol/L Chloride Level 107 98-107 mmol/L Carbon Dioxide Level 26 20-31 mmol/L Anion Gap 8 5-15 Blood Urea Nitrogen 13 9-23 mg/dL Creatinine 0.94 0.550-1.02 mg/dL Glomerular Filtration Rate Calc 61 >90 mL/min BUN/Creatinine Ratio 13.8 10.0-20.0 Serum Glucose 104 74-106 mg/dL Calcium Level 10.0 8.7-10.4 mg/dL Erythrocyte Sedimentation Rate 19 0-20 mm/hr Prothrombin Time 10.9 9.3-11.8 sec Prothrombin Time INR 1.03 0.9-1.15 Iron Level 72 65-175 ug/dL Total Iron Binding Capacity 303 250-425 ug/dL Percent Iron Saturation 23.8 20-55 % Total Bilirubin 0.6 0.2-1.0 mg/dL Aspartate Amino Transferase (AST) 17 13-40 U/L Alanine Aminotransferase (ALT) 10 7-40 U/L Alkaline Phosphatase 87 46-116 U/L C-Reactive Protein High Sensitivity 0.34 <1.0 mg/dL Total Protein 7.2 5.7-8.2 g/dL Albumin 4.1 3.2-4.8 g/dL Thyroid Stimulating Hormone (TSH) 1.64 0.55-4.78 uIU/mL Influenza Type A Antigen Negative Negative Influenza Type B Antigen Negative Negative SARS-CoV-2 Antigen (Rapid) Negative NEGATIVE Troponin I High Sensitivity 4 </=54 ng/L Test 05/31/24 20:25 Range/Units D-Dimer, Quantitative 0.88 H 0.0-0.49 mg/L FEU Magnesium Level 2.0 1.6-2.6 mg/dL B-Type Natriuretic Peptide 77.29 0-100 pg/mL Assessment r/o acs htn hl hx of CAD DM recent flu Plan/Recommendation acs ruled out cta was - for PE ecg is SR and unremarkable consider outpt stress mpi check echo for lvef, r/o pericarditis Plan discussed with: Patient RUY ROSEN MD Jun 02, 2024 11:00
--- NOTE | 2024-06-02 18:58 | DVHPNRES ---
Progress Note Date Seen: Jun 02, 2024 Resident Creating Document: DAIJA WILSON RESIDENT Medical Necessity Reason Pt with a Central, PICC or Fol: No Subjective Review of Systems Safia Luis is a 78-year-old female patient who presents to the ED with the chief complaints of acute dyspnea and functional class III while traveling in a car with her son on the day of admission. Patient is a poor historian, but confirms to have never completed ischemia workup previously. Denies palpitation, syncope, chest pain, fever, nausea, vomiting, diarrhea, diaphoresis, sick contacts, bleeding and motor or sensory deficits. Past medical history: HTN treated with diltiazem (given by Dr. Holt, her PCP), DLP, hypothyroidism, chronic muscle spasms, hiatal hernia Surgical history: Denies Family history: Noncontributory Social history: Lives with the family. Denies current tobacco, alcohol and other drug abuse Allergies: No known allergies Home medication: Aspirin 81 mg p.o. daily, atorvastatin 40 mg p.o. daily, baclofen 20 mg p.o. t.i.d., diltiazem 500 mg p.o., levothyroxine 100 mcg p.o. daily, losartan 25 mg p.o. daily, omeprazole 20 mg p.o. daily Patient seen and examined at the bedside. Currently has no new complaints. EKG on admission showed junctional rhythm, discontinued Cardizem. Repeat EKG shows normal sinus rhythm. Patient did not have any chest pain, only dyspnea. Troponin x3 negative Objective vital signs Vital Sign Date Time Temp Pulse Resp B/P (MAP) Pulse Ox O2 Delivery O2 Flow Rate FiO2 06/02/24 16:56 97.7 69 16 110/64 (79) 98 97.7 06/02/24 08:00 Room Air* 0 21 Total Intake and Output 06/01/24 06/01/24 06/02/24 15:00 23:00 07:00 Intake Total 125 ml Balance 125 ml medications Current Medications Medications Dose Ordered Sig/[place] Route Start Time Stop Time Status Last Admin Dose Admin Nitroglycerin 0.4 mg Q5MINP PRN SL 06/01/24 03:00 Morphine Sulfate 2 mg Q30M PRN IV 06/01/24 03:00 Levothyroxine Sodium 100 mcg QAM@0600 PO 06/02/24 06:00 06/02/24 05:24 100 MCG Atorvastatin Calcium 40 mg HS PO 06/01/24 22:00 06/01/24 21:30 40 MG Baclofen 10 mg Q8HP PRN PO 06/01/24 09:45 Aspirin 81 mg DAILY PO 06/01/24 10:00 06/02/24 10:28 81 MG Pantoprazole Sodium 40 mg DAILY@0700 PO 06/02/24 06:00 06/02/24 05:23 40 MG Losartan Potassium 25 mg DAILY PO 06/02/24 10:00 06/02/24 10:28 25 MG Clonidine HCl 0.1 mg Q4HP PRN PO 06/01/24 19:15 Examination Patient lying in bed, in no acute distress General: Lucid, afebrile, mucosae are moist Cardiovascular: Normal S1 and S2. No murmurs, gallops or rubs Respiratory: Normal ventilation mechanics. Clear lung sounds on auscultation Abdomen: Soft, nontender, no organomegaly, normal bowel sounds MSK/skin: Mobilizes 4 limbs. Skin is dry and warm Neurological: Oriented in 3 spheres. No motor no sensitive deficits. 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 Awaiting report for echocardiogram to rule out pericarditis Junctional rhythm Evidence on 1st EKG on admission Have discontinued Cardizem. Patient has no clear indication for Cardizem Patient's symptoms may have been secondary to bradyarrhythmia Ruled out PE Elevated D-dimer Completed angio CT: No evidence of PE, mild ground-glass opacities likely secondary to poor inspiration, cholelithiasis, left adrenal adenoma, moderate hiatal hernia. Hypothyroidism Continue levothyroxine 100 mcg p.o. daily Hypertension Continue losartan 25 mg p.o. daily. Have discontinued diltiazem Hypokalemia Replenish Normocytic hypochromic anemia Monitor Dyslipidemia Continue with atorvastatin Goals of care discussed with patient for over 18 minutes: Full code status Case management discussed with Dr. Landa, patient and nurse: Awaiting results of echocardiogram. Patient is currently asymptomatic after discontinuing diltiazem, does EKG shows normal sinus rhythm. Suggest replacing diltiazem treatment with other classical antihypertensive medication. Plan discussed with: Patient, Son, Other (Nurses) Date of Service: Jun 02, 2024 Billing Provider: MELYL LANDA MD Common Visit Codes: [id number] INP/OBS CARE(HIGH) DAIJA WILSON RESIDENT Jun 02, 2024 18:58 MELLY LANDA MD Jun 03, 2024 20:15
[2024-06-03] VITALS (7 sets, daily range): BP systolic 113–118; BP diastolic 58–63; PULSE 67–90; RESP 17–18; TEMP 98–98.7; O2SAT 94–98
[2024-06-03 06:07] LABS: Albumin 3.9 g/dL (3.2-4.8); Alkaline Phosphatase 79 U/L (46-116); Aspartate Aminotransferase 17 U/L (13-40); BUN/Creatinine Ratio 13.1 (10.0-20.0); Bilirubin, Total 0.7 mg/dL (0.2-1.0); Blood Urea Nitrogen 13 mg/dL (9-23); Calcium 10.3 mg/dL (8.7-10.4); Chloride 105 mmol/L (98-107); Glucose 96 mg/dL (74-106); Magnesium 2.1 mg/dL (1.6-2.6); Phosphorus 4.3 mg/dL (2.4-5.1); Potassium 4.2 mmol/L (3.5-5.1); Sodium 139 mmol/L (136-145)
[2024-06-03 06:08] LABS: Anion Gap 8 (5-15); Carbon Dioxide 26 mmol/L (20-31); Total Protein 6.8 g/dL (5.7-8.2)
[2024-06-03 06:22] LABS: Alanine Aminotransferase < 9 U/L (7-40)
--- NOTE | 2024-06-03 06:55 | DVHSR ---
APPROVED REPORT EXAM: LIMITED Two-dimensional and M-mode echocardiogram with Doppler and color Doppler. Blood Pressure: 135/55 mmHg INDICATION SOB RISK FACTORS Height: 5, Weight: 144 DIMENSIONS LVDd4.0 (3.8-5.7cm)LA (2D)3.4 (1.9-4.0cm)Aortic Root3.2 (2.0-3.7cm) LVDs2.7 (2.5-4.0cm)LA (MM) (1.9-4.0cm)Aortic Cusp Exc1.8 (1.5-2.0cm) EF (%) 60.0 (55-70%)Rt. Atrium3.4 (1.9-4.0cm)Asc. Aorta cm IVSd1.0 (0.7-1.1cm)RV (D) (1.8-2.4cm) PWd1.0 (0.7-1.1cm) Mitral Valve MitralMitral Stenosis E wave0.80m/sMV Mean GR.mmHg A wave0.90m/sMV Peak GR.mmHg E/A ratio0.92D MVAcm2 Aortic Valve Aortic ValveAortic Stenosis V11.00m/Mauricio Mean GR.4mmHg V21.40m/Mauricio Peak GR.8mmHg LVOT Diameter1.9 (1.8-2.4cm)Doppler AVA2.02cm2 Pulmonic Valve V20.70m/s Tricuspid Valve TR Velocity2.10m/s [id number] Other Information Quality : Technically LimitedRhythm : Technically limited study due to body habitus. Conclusion lvef 55% by visual estimate normal rv function left atrium enlarged no severe valve abnormalities noted normal pericardium
--- NOTE | 2024-06-03 07:25 | DVHPNRES ---
Progress Note Date Seen: Jun 03, 2024 Resident Creating Document: JERRELL CHOI RESIDENT Has the PT tested + for MRSA If YES, has PT been informed?: No Medical Necessity Reason Pt with a Central, PICC or Fol: No Subjective Review of Systems Safia Luis is a 78-year-old female patient who presents to the ED with the chief complaints of acute dyspnea and functional class III while traveling in a car with her son on the day of admission. Patient is a poor historian, but confirms to have never completed ischemia workup previously. Denies palpitation, syncope, chest pain, fever, nausea, vomiting, diarrhea, diaphoresis, sick contacts, bleeding and motor or sensory deficits. Past medical history: HTN treated with diltiazem (given by Dr. Holt, her PCP), DLP, hypothyroidism, chronic muscle spasms, hiatal hernia Surgical history: Denies Family history: Noncontributory Social history: Lives with the family. Denies current tobacco, alcohol and other drug abuse Allergies: No known allergies Home medication: Aspirin 81 mg p.o. daily, atorvastatin 40 mg p.o. daily, baclofen 20 mg p.o. t.i.d., diltiazem 500 mg p.o., levothyroxine 100 mcg p.o. daily, losartan 25 mg p.o. daily, omeprazole 20 mg p.o. daily Patient seen and examined at the bedside. Currently has no new complaints. EKG on admission showed junctional rhythm, discontinued Cardizem. Repeat EKG shows normal sinus rhythm. Patient did not have any chest pain, only dyspnea. Troponin x3 negative Echocardiogram was for pericarditis, left ventricular ejection fraction 55% Possible discharge today. Objective vital signs Vital Sign Date Time Temp Pulse Resp B/P (MAP) Pulse Ox O2 Delivery O2 Flow Rate FiO2 06/03/24 05:00 98.2 70 18 113/61 (78) 96 98.2 06/02/24 20:00 Room Air* 0 21 Total Intake and Output 06/02/24 06/02/24 06/03/24 15:00 23:00 07:00 Intake Total 400 ml 460 ml Balance 400 ml 460 ml medications Current Medications Medications Dose Ordered Sig/[place] Route Start Time Stop Time Status Last Admin Dose Admin Nitroglycerin 0.4 mg Q5MINP PRN SL 06/01/24 03:00 Morphine Sulfate 2 mg Q30M PRN IV 06/01/24 03:00 Levothyroxine Sodium 100 mcg QAM@0600 PO 06/02/24 06:00 06/03/24 05:28 100 MCG Atorvastatin Calcium 40 mg HS PO 06/01/24 22:00 06/02/24 21:11 40 MG Baclofen 10 mg Q8HP PRN PO 06/01/24 09:45 Aspirin 81 mg DAILY PO 06/01/24 10:00 06/02/24 10:28 81 MG Pantoprazole Sodium 40 mg DAILY@0700 PO 06/02/24 06:00 06/03/24 06:39 40 MG Losartan Potassium 25 mg DAILY PO 06/02/24 10:00 06/02/24 10:28 25 MG Clonidine HCl 0.1 mg Q4HP PRN PO 06/01/24 19:15 Examination Examination General Appearance: Alert, Oriented X3, Cooperative, No acute distress HEENT: EOMI Respiratory: Clear to auscultation, Normal air movement Cardiovascular: Regular rate, Normal S1, Normal S2 Abdominal: Normal bowel sounds Extremities: No cyanosis, No edema, Normal pulses, No tenderness/swelling Skin: No rashes, No breakdown Neuro: Normal gait, Normal speech, Strength at 5/5 X4 ext, Normal tone, Sensation intact, Cranial nerves 3-12 NL, Reflexes 2+ Psych/Mental Status: Mental status NL, Mood NL laboratory and microbiology Laboratory Tests 06/03/24 05:20 06/02/24 05:13 Test 06/03/24 05:20 Range/Units Serum Glucose 96 74-106 mg/dL Problem List/Assessment/Plan Problem List/Assessment/Plan Ruled out ACS Patient did not present chest pain, troponin negative x3, follow up EKG showed normal sinus rhythm with no significant ST alteration (initial EKG showed junctional rhythm, patient was on Cardizem which was discontinued during this admission) Patient confirms to have no ischemic workup previously 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 Echocardiogram Was normal, pericarditis was ruled out Junctional rhythm Evidence on 1st EKG on admission Have discontinued Cardizem. Patient has no clear indication for Cardizem Patient's symptoms may have been secondary to bradyarrhythmia Ruled out PE Elevated D-dimer Completed angio CT: No evidence of PE, mild ground-glass opacities likely secondary to poor inspiration, cholelithiasis, left adrenal adenoma, moderate hiatal hernia. Hypothyroidism Continue levothyroxine 100 mcg p.o. daily Hypertension Continue losartan 25 mg p.o. daily. Have discontinued diltiazem Hypokalemia Replenish Normocytic hypochromic anemia Monitor Dyslipidemia Continue with atorvastatin Goals of care discussed with patient for over 18 minutes: Full code status Case management discussed with Dr. Landa, patient and nurse: Patient is currently asymptomatic after discontinuing diltiazem, does EKG shows normal sinus rhythm. Suggest replacing diltiazem treatment with other classical antihypertensive medication. Plan discussed with: Patient Date of Service: Jun 03, 2024 Billing Provider: MELLY LANDA MD Common Visit Codes: NOT BILLABLE JERRELL CHOI RESIDENT Jun 03, 2024 07:25 MELLY LANDA MD Jun 03, 2024 20:14
[2024-06-03 09:44] LABS: Urine Bacteria FEW /hpf (None Seen); Urine Blood Negative /uL (Negative); Urine Clarity Turbid (Clear); Urine Color Colorless (Yellow); Urine Protein, UAD Negative (Negative); Urine Specific Gravity 1.011 (1.001-1.035); Urine Urobilinogen Normal (Negative); Urine WBC 55 /hpf (0 - 5); Urine pH 7.5 (5.0-9.0)
[2024-06-03] MEDS ORDERED: cefTRIAXone 1GM/50ML D5W 50 ML IV ONE (10:00)
[2024-06-03 10:02] LABS: Amphetamine Screen, Urine Neg (NEGATIVE); Barbiturate Scree,Urine Neg (NEGATIVE); Benzodiazephine Screen, Urine Neg (NEGATIVE); Cannabinoid Screen, Urine Neg (NEGATIVE); Cocaine Screen, Urine Neg (NEGATIVE); Opiate Scree,Urine Neg (NEGATIVE); Phencyclidine Screen, Urine Neg (NEGATIVE)
--- NOTE | 2024-06-03 11:25 | DVHDSRES ---
Discharge Summary Date of Admission Resident Creating Document: JERRELL CHOI RESIDENT Jun 01, 2024 at 02:56 Date of Discharge: Jun 03, 2024 Admitting Diagnosis Chest pain rule out ACS Labs/Diagnostic Data: Laboratory Results Test 06/03/24 09:00 06/03/24 05:20 06/02/24 05:13 06/01/24 10:20 Urine Color Colorless (Yellow) Urine Clarity Turbid (Clear) Urine pH 7.5 (5.0-9.0) Urine Specific [place] 1.011 (1.001-1.035) Urine Protein Negative (Negative) Urine Ketones Negative (Negative) Urine Blood Negative /uL (Negative) Urine Nitrite Negative (Negative) Urine Bilirubin Negative (Negative) Urine Urobilinogen Normal mg/dL (Negative) Urine Leukocyte Esterase 3+ /uL (Negative) Urine RBC 2 /hpf (0 - 4) Urine WBC 55 /hpf (0 - 5) Urine Squamous Epithelial Cells Few /hpf (<5) Urine Bacteria Few /hpf (None Seen) Urine Glucose Normal mg/dL (Normal) Urine Opiates Screen Neg (NEGATIVE) Urine Fentanyl Screen Neg (NEGATIVE) Urine Barbiturates Screen Neg (NEGATIVE) Urine Phencyclidine Screen Neg (NEGATIVE) Urine Amphetamines Screen Neg (NEGATIVE) Urine Benzodiazepines Screen Neg (NEGATIVE) Urine Cocaine Screen Neg (NEGATIVE) Urine Cannabinoids Screen Neg (NEGATIVE) Sodium Level 139 mmol/L (136-145) Potassium Level 4.2 mmol/L (3.5-5.1) Chloride Level 105 mmol/L (98-107) Carbon Dioxide Level 26 mmol/L (20-31) Anion Gap 8 (5-15) Blood Urea Nitrogen 13 mg/dL (9-23) Creatinine 0.99 mg/dL (0.550-1.02) Glomerular Filtration Rate Calc 58 mL/min (>90) BUN/Creatinine Ratio 13.1 (10.0-20.0) Serum Glucose 96 mg/dL (74-106) Calcium Level 10.3 mg/dL (8.7-10.4) Phosphorus Level 4.3 mg/dL (2.4-5.1) Magnesium Level 2.1 mg/dL (1.6-2.6) Total Bilirubin 0.7 mg/dL (0.2-1.0) Aspartate Amino Transferase (AST) 17 U/L (13-40) Alanine Aminotransferase (ALT) < 9 U/L (7-40) Alkaline Phosphatase 79 U/L (46-116) Total Protein 6.8 g/dL (5.7-8.2) Albumin 3.9 g/dL (3.2-4.8) Vitamin D 25-Hydroxy 33.1 ng/mL (30.0-100) White Blood Count 5.1 10^3/uL (4.4-10.8) Red Blood Count 4.22 10^6/uL (4.0-5.20) Hemoglobin 12.3 g/dL (12.2-16.2) Hematocrit 36.8 % (36.0-46.0) Mean Corpuscular Volume 87.2 fL (80.0-100.0) Mean Corpuscular Hemoglobin 29.2 pg (28.0-32.0) Mean Corpuscular Hemoglobin Concent 33.5 g/dL (32.0-36.0) Red Cell Distribution Width 15.6 % (11.8-14.3) Platelet Count 224 10^3/uL (140-450) Mean Platelet Volume 9.0 fL (6.9-10.8) Neutrophils (%) (Auto) 48.1 % (37.0-80.0) Lymphocytes (%) (Auto) 40.4 % (10.0-50.0) Monocytes (%) (Auto) 7.8 % (0.0-12.0) Eosinophils (%) (Auto) 3.0 % (0.0-7.0) Basophils (%) (Auto) 0.7 % (0.0-2.0) Neutrophils # (Auto) 2.5 10 ^3/uL (1.6-8.6) Lymphocytes # (Auto) 2.1 10 ^3/uL (0.4-5.4) Monocytes # (Auto) 0.4 10 ^3/uL (0-1.3) Eosinophils # (Auto) 0.2 10 ^3/uL (0-0.8) Basophils # (Auto) 0 10 ^3/uL (0-0.2) Nucleated Red Blood Cells 0.1 % Erythrocyte Sedimentation Rate 19 mm/hr (0-20) Prothrombin Time 10.9 sec (9.3-11.8) Prothrombin Time INR 1.03 (0.9-1.15) Iron Level 72 ug/dL (65-175) Total Iron Binding Capacity 303 ug/dL (250-425) Percent Iron Saturation 23.8 % (20-55) C-Reactive Protein High Sensitivity 0.34 mg/dL (<1.0) Thyroid Stimulating Hormone (TSH) 1.64 uIU/mL (0.55-4.78) Test 06/01/24 09:52 05/31/24 22:55 05/31/24 20:25 Influenza Type A Antigen Negative (Negative) Influenza Type B Antigen Negative (Negative) SARS-CoV-2 Antigen (Rapid) Negative (NEGATIVE) Troponin I High Sensitivity 4 ng/L (</=54) D-Dimer, Quantitative 0.88 mg/L FEU (0.0-0.49) B-Type Natriuretic Peptide 77.29 pg/mL (0-100) Other Laboratory Tests 06/03/24 05:20 06/02/24 05:13 Brief Hx & Hospital Course: 78-year-old female patient who presented to the emergency department with chief complaint of acute dyspnea and functional class 3 symptoms with traveling in a car with her son. She denies any palpitation, syncope, chest pain, fever, nausea, vomiting, diarrhea, diaphoresis, sick contacts, motor or sensory deficits. She has never undergone ischemia workup prior to this visit. Her past medical history is consistent with hypertension, dyslipidemia, hypothyroidism, muscle spasms, hiatal hernia. Hospital course: The patient was admitted for acute dyspnea and initial workup showed junctional rhythm on admission, repeat EKG showed normal sinus rhythm, troponin levels 3 sets were negative, echocardiogram showed ejection fraction of 55% , pericarditis also was ruled out. Cardizem was discontinued during her admission for which the patient will start on losartan 100 mg p.o. Discharge plan: Condition at discharge is stable with resolution of acute symptoms. Follow-up with primary care provider in 1-2 weeks and and Cardiology follow-up within also 1-2 weeks Patient instructions: Monitor recurrence of symptoms such as chest pain, palpitations or worsening shortness of breaths, maintain low-sodium diet, take medication as prescribed. Goals of care discussed with the patient for 42 minutes Case discussed with Dr. Landa Operations or Procedures [address] [address] Ph: [phone] DIAGNOSTIC IMAGING Diagnostic Imaging Report : [id number] Signed PATIENT: JENNIFER GUILLEN ACCT: [id number] UNIT: [id number] : 1945 LOC: ER ROOM / BED: / AGE / SEX: 78 / M ADM STATUS: REG ER SERVICE 09 ORDERING PHYSICIAN: CLYDE HANNA DO PROCEDURE(s): CXRP - CHEST PORTABLE REASON: cp/sob ORDER NUMBER(s): [id number], ACCESSION NUMBER(s): [id number] CHEST RADIOGRAPH Indication: cp/sob Technique: Single frontal view of the chest was obtained Comparison: None FINDINGS: Lines and Tubes: None Lungs: Clear Pleura: No effusion. No pneumothorax. Cardiomediastinal contours: Unremarkable Bones: Unremarkable IMPRESSION: 1. Clear lungs. ATED BY: ALINE CESAR DO DICTATED DATE/TIME: 05/31/242044 SIGNED BY: ALINE CESAR DO SIGNED DATE/TIME: 05/31/242044 CC: [place] [id number] Ph: [phone] DIAGNOSTIC IMAGING Diagnostic Imaging Report : [id number] Signed PATIENT: JENNIFER GUILLEN ACCT: [id number] UNIT: [id number] : 1945 LOC: TELE ROOM / BED: [address] [place] [address] AGE / SEX: 78 / F ADM STATUS: ADM IN SERVICE 1145 ORDERING PHYSICIAN: TOVA LANG RESIDENT PROCEDURE(s): CTACH - CT ANGIO CHEST CONTRAST REASON: R/O PE ORDER NUMBER(s): [id number], ACCESSION NUMBER(s): [id number] CTA Chest with intravenous contrast INDICATION: R/O PE COMPARISON: Chest x-ray 05/31/2024 TECHNIQUE: Multidetector spiral CTA of the chest was performed of the chest with intravenous contrast. PULMONARY ANGIOGRAPHY PROTOCOL was utilized using a bolus- tracking technique centered on the main pulmonary artery. Axial, coronal and sagittal multiplanar and MIP reformats were performed. Radiation Dose : 1. Chest: CTDI volume is 13.02 mGy. Dose-length product is 325.57 mGy*cm The dose indicators for CT are the volume Computed Tomography (CT) Dose Index (CTDIvol) and the Dose Length Product (DLP), and are measured in units of mGy and mGy-cm, respectively. These indicators are not patient dose, but values generated from the CT scanner acquisition factors. The report includes radiation exposure data for exposures received during this examination. Findings: Pulmonary artery: No central or large segmental pulmonary emboli. There is suboptimal evaluation of the segmental/subsegmental pulmonary arterial branches at the lung bases secondary to respiratory motion. Lower neck: Normal thyroid. Lungs: There is dependent atelectasis. There are areas of mild ground-glass opacity which is likely related to poor inspiration. No focal consolidation. Heart/Vascular Structures: Normal heart size. No pericardial effusion. Mild atherosclerotic calcification in the coronary arteries and thoracic aorta. Lymph Nodes: No adenopathy Pleura: No pleural effusion or significant pneumothorax. Musculoskeletal: No acute osseous abnormality. Old fracture of the right 4th lateral rib. Soft tissues: Normal. Upper abdomen: Punctate cholelithiasis. There is a 1.7 cm left adrenal nodule that attenuates at -7 H[place] units. There is a moderate size hiatal hernia. IMPRESSION: 1. No evidence of pulmonary embolism. 2. Mild ground-glass opacities are likely related to poor inspiration. No focal pneumonia. 3. Cholelithiasis. 4. Left adrenal adenoma. 5. Moderate hiatal hernia. ATED BY: TRACY REDDY DO DICTATED DATE/TIME: 06/01/24 1433 SIGNED BY: TRACY REDDY DO SIGNED DATE/TIME: 06/01/24 1433 CC: Condition at Discharge: Fair Final Diagnosis/Problems List non cardiac chest pain Ruled out ACS Junctional rhythm Ruled out PE Hypothyroidism Hypertension Hypokalemia, resolved Normocytic hypochromic anemia Dyslipidemia Discharge Disposition: Home SNF Discharge Will this Physician continue t: No Discharge Instruct/Medications Diet: Cardiac 2g Na,low cholest Diet comment: cardiac Activity: No Restrictions, As Tolerated Follow Up/Referral: follow up with pcp within 1 to 2 weeks f/u with cardiology within 1 to 2 wks Medications: losartan 100 mg PO Discharge Statement: "Patient was advised to return to the ER or call 911 if any headaches, dizziness, shortness of breath, chest pain, abdominal pain, bleeding, fevers, or worsening of medical condition. Patient was counseled about treatment plan, medications, possible side effects, patientverbalized understanding. All questions were answered to the best of my ability. This discharge took greater then 30 minutes in planning, reviewing documentation, counseling the patient, and discussing with other team members." ASSESSMENT ASSESSMENT Assessment chest pain ruled out ACS JERRELL CHOI RESIDENT Jun 03, 2024 11:25
[2024-06-03] MEDS ORDERED: LOSA-534 PO (11:26)
[2024-06-04] MEDS ORDERED: cefTRIAXone 1GM/50ML D5W 50 ML IV SCH (09:00)
[2024-06-04] MEDS ORDERED: LOSARTAN POTASSIUM 50 MG TAB PO SCH (10:00)
== END 2024-06-03 14:00 | disposition home or self-care (01) | DRG 206 ==
LOC: EDBD 20:00 → ER 20:07 → EDSEX 06-01 02:56 → TELE 06-01 02:56 → TELE-EAST 06-01 17:45
PROVIDERS: ADMIT Internal Medicine Geriatric Medicine; ATTEND Emergency Medicine
DX: M94.0 Chondrocostal junction syndrome [Tietze] (principal); I10 Essential (primary) hypertension; Z20.822 Contact with and (suspected) exposure to COVID-19; E87.6 Hypokalemia; E78.5 Hyperlipidemia, unspecified; E03.9 Hypothyroidism, unspecified; I25.10 Atherosclerotic heart disease of native coronary artery without angina pectoris; D50.9 Iron deficiency anemia, unspecified; K21.9 Gastro-esophageal reflux disease without esophagitis; Z79.82 Long term (current) use of aspirin; Z79.899 Other long term (current) drug therapy
CPT/HCPCS: 36415; 71045; 71275; 80048; 80053; 80307; 81001; 82306; 82607; 83540; 83550; 83735; 83880; 84100; 84443; 84484; 85025; 85379; 85610; 85652; 86141; 87426; 87804; 93005; 93306; 97163; G0378